=== PATIENT | female | born 1980 | race Caucasian/White ===

== ENCOUNTER 2023-10-06 11:40 | Emergency (ER) | payer MEDICAID ==
[~2023-10-06] VITALS: Ht 160 cm; Wt 86.2 kg
[2023-10-06 11:46] VITALS: BP 162/117; PULSE 80; RESP 16; TEMP 96.8; O2SAT 100
[2023-10-06] MEDS ORDERED: AMLO5TAB PO (12:09)
[2023-10-06 12:26] VITALS: O2SAT 100
== END 2023-10-06 12:18 | disposition home or self-care (01) ==
LOC: MED 11:40
DX: I10 Essential (primary) hypertension (principal); Z79.899 Other long term (current) drug therapy
CPT/HCPCS: 99283